=== PATIENT | female | born 1935 | race Caucasian/White ===

== ENCOUNTER 2023-12-03 17:15 | Observation (INO) | payer MEDICARE, MEDICAID ==
[~2023-12-03] VITALS: Ht 162.6 cm; Wt 68.5 kg
[2023-12-03 17:37] VITALS: BP 201/97; PULSE 93; RESP 18; TEMP 97.8; O2SAT 98
[2023-12-03 18:15] VITALS: BP 187/85; PULSE 82; RESP 18; O2SAT 97
[2023-12-03] MEDS: TRANDATE IV STA (18:30)
[2023-12-03 18:46] LABS: BILIRUBIN,URINE NEGATIVE (NEGATIVE); LEUKOCYTE ESTERASE ,URINE NEGATIVE (NEGATIVE); NITRATE,URINE NEGATIVE (NEGATIVE); UROBILINOGEN,URINE 0.2 E.U./dL (0.2)
[2023-12-03 18:54] LABS: APPEARANCE,URINE CLEAR; UA COLOR YELLOW
[2023-12-03 19:25] VITALS: BP 170/87; PULSE 79; RESP 18; O2SAT 97
[2023-12-03 19:55] LABS: BASOPHIL % 0.4 % (0.1-1.2); EOSINOPHIL # 0.1 10^3/uL (0.0-0.2); EOSINOPHIL % 0.8 % (0.0-5.0); HEMATOCRIT(ML) 44.4 % (36.0-46.0); HEMOGLOBIN 14.5 g/dL (12.0-15.0); LYMPHOCYTES # 1.79 10^3/uL1 (1.0-4.8); LYMPHOCYTES % 24.6 % (24.0-44.0); MEAN CORP HGB 29.5 pg (26-34); MEAN CORP HGB CONCENTRATION 32.7 g/dL (33-36.5); MEAN CORP VOLUME 90.2 fL (78-100); MONOCYTES # 0.5 10^3/uL (0.3-0.8); MONOCYTES % 6.6 % (5.0-12.0); NEUTROPHIL # 4.9 10^3/uL (1.8-7.7); NEUTROPHILS % 67.3 % (41.0-85.0); PLATELET COUNT 263 10^3/uL (150-400); RED BLOOD CELL 4.92 10^6/uL (4.00-5.20); RED CELL DISTRIBUTION WIDTH 12.8 % (11.5-14.5); WHITE BLOOD CELL 7.3 10^3/uL (4.5-11.0)
[2023-12-03 19:56] LABS: +ADD MANUAL DIFF(NO CHRG) NO
[2023-12-03 20:04] LABS: ANION GAP 20.8; BUN/CREATININE RATIO 21.64 (10.0-20.0); CARBON DIOXIDE 20.2 mmol/L (20.0-32); CREATININE SERUM 0.97 mg/dL (0.59-1.40); EST GFR, NON-AA 54.5 (>/=60)
[2023-12-03 20:15] VITALS: BP 171/86; PULSE 75; RESP 17; TEMP 97.4; O2SAT 100
[2023-12-03 20:17] VITALS: BP 197/108; PULSE 81; RESP 18; O2SAT 97
[2023-12-03] MEDS ORDERED: ZOFRAN IV PRN (20:30)
[2023-12-04] VITALS (7 sets, daily range): BP systolic 121–168; BP diastolic 60–80; PULSE 70–76; RESP 16–18; TEMP 97.1–98.1; O2SAT 94–96
[2023-12-04] MEDS: COZAAR PO SCH (08:48)
[2023-12-04] MEDS: LOVENOX SQ SCH (08:48)
[2023-12-04] MEDS: PROTONIX PO SCH (08:48)
[2023-12-04] MEDS: ASPIRIN EC PO SCH (11:00)
[2023-12-04] MEDS: TYLENOL PO PRN (14:45)
[2023-12-04] MEDS: LIPITOR PO SCH (20:24)
[2023-12-05] VITALS: BP 160/72; PULSE 77; RESP 18; TEMP 97.2; O2SAT 97
[2023-12-05 03:10] VITALS: BP 134/70; PULSE 75; RESP 18; TEMP 98.1; O2SAT 95
[2023-12-05 03:11] VITALS: BP 134/70; PULSE 75; RESP 18
[2023-12-05 06:25] LABS: LDL/HDL RATIO 2.9
[2023-12-05 07:37] VITALS: BP 152/78; PULSE 70; RESP 18; TEMP 97; O2SAT 95
[2023-12-05] MEDS: PLAVIX PO SCH (09:30)
[2023-12-05] MEDS ORDERED: LOSA-400 PO (09:32)
[2023-12-05] MEDS ORDERED: FAMO20TA5 PO (09:32)
[2023-12-05] MEDS ORDERED: ASPI-667 PO (09:32)
[2023-12-05] MEDS ORDERED: CLOP75TA PO (09:32)
[2023-12-05] MEDS ORDERED: ATOR20TA PO (09:51)
[2023-12-05 10:00] VITALS: BP 152/78; PULSE 70; RESP 18
[2023-12-05 11:45] VITALS: BP 152/78; PULSE 70; RESP 18; TEMP 97; O2SAT 95
== END 2023-12-05 11:45 | disposition home or self-care (01) ==
LOC: ER 17:15 → UNDOADMOB 19:43 → INTOOBSV 19:43 → OBS 19:43 → MS 19:43
PROVIDERS: ADMIT Internal Medicine; ATTEND Internal Medicine
DX: I63.9 Cerebral infarction, unspecified (principal); I67.4 Hypertensive encephalopathy; I10 Essential (primary) hypertension; R47.01 Aphasia; Z79.899 Other long term (current) drug therapy
CPT/HCPCS: 99291; 96374; 71045; 70450; 85025; 36415 ×2; 80048; 84484; 81001; 93005; 96372 ×2; 70551; 70498; 70496; 93306; 80061; 83036; 97161; G0378 ×4; J3490 ×2; J1650 ×2; Q9965

== ENCOUNTER 2024-12-24 13:41 | Emergency (ER) | payer MEDICAID, MEDICARE ==
[~2024-12-24] VITALS: Ht 162.6 cm; Wt 65.8 kg
[~2024-12-24 13:41] MED LIST: ASPI-667 PO; ATOR20TA PO; CLOP75TA PO; FAMO20TA5 PO; LOSA-400 PO
[2024-12-24 14:08] VITALS: BP 141/70; PULSE 92; RESP 14; RESP 16; TEMP 98; O2SAT 95
[2024-12-24] MEDS ORDERED: MUPI1OIN6 TP (14:14)
[2024-12-24] MEDS ORDERED: AMOX500C PO (14:14)
[2024-12-24] MEDS ORDERED: MOXI3DRO2 OP (14:14)
[2024-12-24] MEDS ORDERED: SULF1TAB24 PO (14:14)
== END 2024-12-24 14:36 | disposition home or self-care (01) ==
LOC: ER 13:41
DX: L03.213 Periorbital cellulitis (principal); Z79.02 Long term (current) use of antithrombotics/antiplatelets; Z79.899 Other long term (current) drug therapy
CPT/HCPCS: 99283